=== PATIENT | male | born 1960 ===

== ENCOUNTER → 2018-08-03 21:02 | Outpatient (REF) | payer OTHER, SELFPAY ==
[2018-08-03 21:53] LABS: Add Manual Diff / Slide Review NO; Basophils Percent Auto 1.1 % (0-2); Eosinophils Percent Auto 1.6 % (2-4); Hematocrit 50.7 % (41-53); Hemoglobin 17.1 g/dL (13.5-17.5); Lymphocytes Percent Auto 31.8 % (25-40); Mean Corpuscular HGB Conc 33.6 % (30-36); Mean Corpuscular Hemoglobin 29.2 PG (26-34); Mean Corpuscular Volume 86.9 fL (80-100); Neutrophils Absolute Auto 2700 /uL (1500-7000); Neutrophils Percent Auto 53.5 % (50-75); Platelet Count 215 X10^3/uL (150-400); Red Blood Cell Count 5.83 X10^6/uL (4.5-5.9); Red Cell Distribution Width 14.1 % (11.6-14.8); White Blood Cell Count 5.1 X10^3/uL (4.5-11.0)
[2018-08-07 14:21] LABS: PSA Total 1.25 ng/mL (< 4.01)
[2018-08-07 16:40] LABS: Estradiol 20 pg/mL (< 40)
[2018-08-08 09:55] LABS: Testosterone Free 51.6 pg/mL (35.0-155.0); Testosterone Total 345 ng/dL (250-1100)
== END ==
LOC: LAB 21:02
PROVIDERS: Visit Provider Family Medicine
DX: F41.1 Generalized anxiety disorder (principal); E29.1 Testicular hypofunction
CPT/HCPCS: 36415; 82670; 84153; 84154; 84402; 84403; 85025

== ENCOUNTER → 2018-11-23 21:16 | Outpatient (REF) | payer OTHER, SELFPAY ==
[2018-11-23 22:44] LABS: Alanine Aminotransferase 45 IU/L (21-72); Albumin 4.6 g/dL (3.5-5.0); Albumin Globulin Ratio 1.6 (1.0-2.8); Alkaline Phosphatase 70 U/L (38-126); Aspartate Aminotransferase 36 IU/L (17-59); BUN Creatinine Ratio 15.8 (6-22); Bilirubin Total 0.9 mg/dL (0.2-1.3); Blood Urea Nitrogen 19 mg/dL (9-20); Calcium 9.8 mg/dL (8.4-10.2); Carbon Dioxide 26 mmol/L (22-32); Chloride 102 mmol/L (98-107); Estimated Glomerular Filt Rate > 60.0 mL/min (>60); Globulin 2.9 g/dL (1.7-4.1); Glucose 90 mg/dL (70-100); HEMOLYSIS < 15 (0-50); Potassium 4.5 mmol/L (3.4-5.1); Sodium 138 mmol/L (137-145); Total Protein 7.5 g/dL (6.3-8.2)
[2018-11-23 22:57] LABS: Hematocrit 52.7 % (41-53); Hemoglobin 17.7 g/dL (13.5-17.5); Mean Corpuscular HGB Conc 33.6 % (30-36); Mean Corpuscular Volume 86.4 fL (80-100); Platelet Count 245 X10^3/uL (150-400); Red Cell Distribution Width 14.5 % (11.6-14.8); White Blood Cell Count 6.7 X10^3/uL (4.5-11.0)
[2018-11-23 23:19] LABS: Thyroid Stimulating Hormone 1.78 uIU/mL (0.47-4.68)
[2018-11-23 23:21] LABS: Add Manual Diff / Slide Review YES
[2018-11-24 01:45] LABS: RBC Morphology Normal Morphology
[2018-11-27 15:17] LABS: PSA Total 2.67 ng/mL (< 4.01)
[2018-11-28 13:10] LABS: Testosterone, Total 57.4
[2018-11-28 13:11] LABS: Testosterone,Free 1.7
[2018-11-28 20:37] LABS: Estrogen 55.2 pg/mL (60-190)
== END ==
LOC: LAB 21:16
PROVIDERS: Visit Provider Family Medicine
DX: F41.1 Generalized anxiety disorder (principal); E29.1 Testicular hypofunction
CPT/HCPCS: 36415; 80053; 82627; 82672; 84153; 84154; 84402; 84403; 84439; 84443; 85025